=== PATIENT | female | born 1985 | race Caucasian/White ===

== ENCOUNTER 2024-10-26 19:50 | Emergency (ER) | payer BC ==
[~2024-10-26] VITALS: Ht 157.5 cm; Wt 73.0 kg
[2024-10-26 20:07] VITALS: PULSE 114; O2SAT 100
[2024-10-26 20:10] VITALS: BP 107/73; RESP 24; TEMP 36.7; O2SAT 100
[2024-10-26 21:04] LABS: BASOPHILS % 0.9 % (0.0-2.0); EOSINOPHILS % 2.9 % (0.0-5.0); HEMATOCRIT. 39.7 % (36.0-48.0); HEMOGLOBIN. 13.6 g/dL (12.0-16.0); LYMPHOCYTES % 39.8 % (20.0-50.0); MEAN CORPUSCULAR HGB CONC 34.2 g/dL (31.0-37.0); MEAN PLATELET VOLUME 7.7 fl (7.4-10.4); MONOCYTES % 6.6 % (2.0-8.0); NEUTROPHILS % 49.8 % (40.0-76.0); PLATELET 373 x1000/uL (130-400); RED BLOOD CELL COUNT 4.84 mill/uL (4.2-5.4); RED CELL DISTRIBUTION WIDTH 14.3 % (11.6-14.6); WHITE BLOOD COUNT 9.4 x1000/uL (4.5-11.0)
[2024-10-26 21:15] LABS: D-DIMER 0.27 mg/L FEU (<0.50); INR 0.9; PARTIAL THROMBOPLASTIN TIME 25.4 sec (23.4-31.0); PROTHROMBIN TIME 10.5 sec (9.6-11.0)
[2024-10-26 21:25] LABS: CHLORIDE 106 mEq/L (98-107); POTASSIUM 3.1 mEq/L (3.5-5.1); SODIUM 139 mEq/L (136-145)
[2024-10-26 21:26] LABS: CARBON DIOXIDE 23 mEq/L (21-32)
[2024-10-26 21:27] LABS: CALCIUM 9.2 mg/dL (8.7-10.4)
[2024-10-26 21:29] LABS: HCG SCREEN NEGATIVE
[2024-10-26 21:31] LABS: CREATININE 0.8 mg/dL (0.6-1.0); GLUCOSE 87 mg/dL (70-105); UREA NITROGEN BLOOD 12 mg/dL (9-23)
[2024-10-26 21:34] LABS: TROPONIN I HIGH SENSITIVITY < 4 ng/L (3.0-34)
[2024-10-26] MEDS ORDERED: POTASSIUM CHLORIDE 20MEQ TABLET SR PO ONE (21:45)
[2024-10-26] MEDS ORDERED: IPRATROPIUM BROMIDE (0.02%) 0.5MG/2.5ML NEB HHN STA (22:38)
[2024-10-26] MEDS ORDERED: ALBUTEROL (0.083%) 2.5MG/3ML NEB HHN STA (22:38)
[2024-10-27] MEDS: POTASSIUM CHLORIDE 20MEQ TABLET SR PO NR (01:26)
== END 2024-10-27 01:32 | disposition left against medical advice (07) ==
LOC: ER 19:50 → EDBEDREQTM 22:42 → EDBEDREQSVC 22:42 → EDBEDREQ 22:42 → ER 10-27 01:32
DX: R06.02 Shortness of breath (principal); E87.6 Hypokalemia; Z98.890 Other specified postprocedural states
CPT/HCPCS: 36415; 71045; 80048; 83880; 84484; 84703; 85025; 85379; 86850; 86900; 93005; 99285